=== PATIENT | male | born 1980 | race Hispanic/Latino ===

== ENCOUNTER 2021-12-20 08:56 | Emergency (ER) | payer SELFPAY ==
[2021-12-20] MEDS ORDERED: diphenhydrAMINE 50 MG/ML VIAL ONE (10:07)
[2021-12-20] MEDS ORDERED: Haloperidol Lactate 5 MG/ML VIAL ONE (10:07)
[2021-12-20] MEDS ORDERED: Ketorolac Tromethamine 30 MG/ML VIAL ONE (10:08)
[2021-12-20 10:26] LABS: #Monocytes 0.6 10x3/uL (0.0-1.1); #Neutrophils 16.4 10x3/uL (1.5-8.4); %Basophils 0.2 % (0.0-2.0); %Lymphocytes 7.8 % (18.0-47.0); %Monocytes 3.4 % (0.0-10.0); %Neutrophils 88.2 % (40.0-75.0); Hemoglobin 14.3 g/dL (13.5-17.5); Mean Corpuscular Hemoglobin 32.4 pg (27.0-33.0); Mean Corpuscular Volume 92.3 fl (81.2-95.1); Mean Platelet Volume 12.2 fl (7.4-10.4); Platelet Count 201 10x3/uL (150-450); RBC Distribution Width 13.5 % (11.5-14.5); Red Blood Cell (RBC) Count 4.42 10x6/uL (4.32-5.72); White Blood Cell (WBC) Count 18.6 10x3/uL (3.5-10.5)
[2021-12-20 10:49] LABS: ALT (SGPT) 38 U/L (8-55); AST (SGOT) 27 U/L (5-34); Albumin 4.6 g/dL (3.5-5.0); Alkaline Phosphatase 88 U/L (40-110); Anion Gap 14 mmol/L (10-20); BUN (Urea Nitrogen) 18 mg/dL (8.9-20.6); Bilirubin, Total 0.8 mg/dL (0.2-1.2); Calc. Creatinine Clearance 0 mL/min (70-130); Calcium 9.4 mg/dL (7.8-10.44); Carbon Dioxide 25 mmol/L (22-29); Chloride 104 mmol/L (98-107); Globulin 3.2 g/dL (2.4-3.5); Glucose 128 mg/dL (70-105); Lipase 10 U/L (8-78); Potassium 3.8 mmol/L (3.5-5.1); Protein, Total 7.8 g/dL (6.0-8.3); Sodium 139 mmol/L (136-145)
== END 2021-12-20 11:20 | disposition home or self-care (01) ==
LOC: CSHERS 08:56
DX: K57.92 Diverticulitis of intestine, part unspecified, without perforation or abscess without bleeding (principal); Z79.899 Other long term (current) drug therapy; F17.200 Nicotine dependence, unspecified, uncomplicated
CPT/HCPCS: 74019; 80053; 83690; 85025; 96374; 96375; J1200; J1630; J1885

== ENCOUNTER 2022-01-25 22:28 | Emergency (ER) | payer SELFPAY ==
[2022-01-25] MEDS ORDERED: Ondansetron PF 4 MG/2 ML Vial ONE (23:04)
[2022-01-25] MEDS ORDERED: Morphine 4 MG/ML VIAL ONE (23:04)
[2022-01-25 23:14] LABS: Hemoglobin 14.9 g/dL (13.5-17.5); MDiff Complete? YES; Mean Corpuscular HGB CONC 35.1 g/dL (32.0-36.0); Mean Platelet Volume 12.2 fl (7.4-10.4); Platelet Count 213 10x3/uL (150-450); RBC Distribution Width 13.5 % (11.5-14.5); Red Blood Cell (RBC) Count 4.66 10x6/uL (4.32-5.72); White Blood Cell (WBC) Count 20.2 10x3/uL (3.5-10.5)
[2022-01-25 23:23] LABS: ALT (SGPT) 24 U/L (8-55); AST (SGOT) 18 U/L (5-34); Albumin 4.5 g/dL (3.5-5.0); Alkaline Phosphatase 100 U/L (40-110); Anion Gap 13 mmol/L (10-20); BUN (Urea Nitrogen) 18 mg/dL (8.9-20.6); Bilirubin, Total 0.3 mg/dL (0.2-1.2); CK (CPK) 195 U/L (30-200); Calc. Creatinine Clearance 0 mL/min (70-130); Calcium 9.3 mg/dL (7.8-10.44); Carbon Dioxide 22 mmol/L (22-29); Chloride 109 mmol/L (98-107); Globulin 2.6 g/dL (2.4-3.5); Glucose 149 mg/dL (70-105); Lipase 28 U/L (8-78); Protein, Total 7.1 g/dL (6.0-8.3); Sodium 140 mmol/L (136-145)
[2022-01-25] MEDS ORDERED: Pantoprazole 40 MG VIAL ONE (23:25)
[2022-01-25 23:30] LABS: Lymphocytes 12 % (21-51); Monocytes 3 % (0-10); Neutrophil 85 % (42-75)
[2022-01-25 23:31] LABS: Platelet Morphology Comment Appears Adequate; RBC Morphology Normal
== END 2022-01-25 23:46 | disposition home or self-care (01) ==
LOC: CSHERS 22:28
DX: K29.00 Acute gastritis without bleeding (principal); D72.829 Elevated white blood cell count, unspecified; R00.1 Bradycardia, unspecified; F17.200 Nicotine dependence, unspecified, uncomplicated
CPT/HCPCS: 80053; 82550; 83690; 83880; 84484; 85025; 93005; 96374; 96375; C9113; J2270; J2405

== ENCOUNTER 2022-01-26 04:03 | Emergency (ER) | payer SELFPAY ==
[2022-01-26] MEDS ORDERED: Lidocaine Viscous Sol 2% 15 ml UD Cup ONE (04:48)
[2022-01-26] MEDS ORDERED: Morphine 4 MG/ML VIAL ONE (04:48)
[2022-01-26] MEDS ORDERED: Mag-Al Plus 1200 MG/1200 MG/120 MG/30 ML UDCUP ONE (04:48)
[2022-01-26] MEDS ORDERED: Ondansetron PF 4 MG/2 ML Vial ONE (04:49)
[2022-01-26] MEDS ORDERED: Iopamidol 300 61% 100 ML VIAL FS ONE (09:07)
== END 2022-01-26 06:55 | disposition home or self-care (01) ==
LOC: CSHERS 04:03
DX: R10.9 Unspecified abdominal pain (principal); F17.200 Nicotine dependence, unspecified, uncomplicated
CPT/HCPCS: 74177; 84484; 93005; 96374; 96375; J2270; J2405; Q9967

== ENCOUNTER 2022-05-11 17:54 | Emergency (ER) | payer SELFPAY ==
[2022-05-11] MEDS ORDERED: Ondansetron ODT 4 MG TAB ONE (19:03)
[2022-05-11] MEDS ORDERED: Dicyclomine 20 MG/2 ML VIAL ONE (19:03)
[2022-05-11 20:10] LABS: #Monocytes 0.7 10x3/uL (0.0-1.1); #Neutrophils 11.7 10x3/uL (1.5-8.4); %Basophils 0.3 % (0.0-2.0); %Eosinophils 0.1 % (0.0-6.0); %Lymphocytes 9.1 % (18.0-47.0); %Monocytes 4.9 % (0.0-10.0); %Neutrophils 85.1 % (40.0-75.0); Hemoglobin 15.4 g/dL (13.5-17.5); Mean Corpuscular HGB CONC 35.3 g/dL (32.0-36.0); Mean Corpuscular Hemoglobin 32.2 pg (27.0-33.0); Mean Platelet Volume 12.1 fl (7.4-10.4); Platelet Count 213 10x3/uL (150-450); Red Blood Cell (RBC) Count 4.79 10x6/uL (4.32-5.72); White Blood Cell (WBC) Count 13.8 10x3/uL (3.5-10.5)
[2022-05-11] MEDS ORDERED: Morphine 4 MG/ML VIAL ONE (20:10)
[2022-05-11] MEDS ORDERED: Promethazine HCl 25 MG/ML VIAL ONE (20:10)
[2022-05-11] MEDS ORDERED: Pantoprazole 40 MG VIAL ONE (20:11)
[2022-05-11 20:29] LABS: ALT (SGPT) 36 U/L (8-55); AST (SGOT) 28 U/L (5-34); Albumin 4.7 g/dL (3.5-5.0); Alkaline Phosphatase 94 U/L (40-110); Anion Gap 15 mmol/L (10-20); BUN (Urea Nitrogen) 11 mg/dL (8.9-20.6); Bilirubin, Total 0.6 mg/dL (0.2-1.2); Calc. Creatinine Clearance 0 mL/min (70-130); Calcium 9.9 mg/dL (7.8-10.44); Carbon Dioxide 23 mmol/L (22-29); Chloride 106 mmol/L (98-107); Estimated GFR 114; Globulin 3.2 g/dL (2.4-3.5); Glucose 149 mg/dL (70-105); Lipase 21 U/L (8-78); Potassium 4.3 mmol/L (3.5-5.1); Protein, Total 7.9 g/dL (6.0-8.3); Sodium 140 mmol/L (136-145)
== END 2022-05-11 21:20 | disposition home or self-care (01) ==
LOC: CSHERS 17:54
DX: R10.13 Epigastric pain (principal); F17.200 Nicotine dependence, unspecified, uncomplicated
CPT/HCPCS: 71045; 80053; 83690; 84484; 85025; 93005; 96372; 96374; 96375; C9113; J2270; J2550; Q0162

== ENCOUNTER 2022-05-14 09:00 | Emergency (ER) | payer SELFPAY ==
[2022-05-14 09:41] LABS: #Neutrophils 6.6 10x3/uL (1.5-8.4); %Basophils 0.3 % (0.0-2.0); %Eosinophils 0.1 % (0.0-6.0); %Lymphocytes 25.5 % (18.0-47.0); %Monocytes 9.7 % (0.0-10.0); %Neutrophils 63.9 % (40.0-75.0); Hemoglobin 15.1 g/dL (13.5-17.5); Mean Corpuscular HGB CONC 35.8 g/dL (32.0-36.0); Mean Corpuscular Hemoglobin 32.2 pg (27.0-33.0); Mean Platelet Volume 12.1 fl (7.4-10.4); Platelet Count 202 10x3/uL (150-450); RBC Distribution Width 12.5 % (11.5-14.5); Red Blood Cell (RBC) Count 4.69 10x6/uL (4.32-5.72); White Blood Cell (WBC) Count 10.4 10x3/uL (3.5-10.5)
[2022-05-14] MEDS ORDERED: Pantoprazole 40 MG VIAL ONE (09:57)
[2022-05-14] MEDS ORDERED: Ondansetron PF 4 MG/2 ML Vial ONE (09:58)
[2022-05-14] MEDS ORDERED: Morphine 4 MG/ML VIAL ONE ×2 (09:59→12:04)
[2022-05-14 10:05] LABS: ALT (SGPT) 30 U/L (8-55); AST (SGOT) 22 U/L (5-34); Albumin 4.4 g/dL (3.5-5.0); Alkaline Phosphatase 81 U/L (40-110); Anion Gap 13 mmol/L (10-20); BUN (Urea Nitrogen) 11 mg/dL (8.9-20.6); Bilirubin, Total 0.8 mg/dL (0.2-1.2); Calc. Creatinine Clearance 0 mL/min (70-130); Calcium 9.4 mg/dL (7.8-10.44); Carbon Dioxide 26 mmol/L (22-29); Chloride 99 mmol/L (98-107); Estimated GFR 113; Glucose 111 mg/dL (70-105); Lipase 20 U/L (8-78); Potassium 3.8 mmol/L (3.5-5.1); Protein, Total 7.4 g/dL (6.0-8.3); Sodium 134 mmol/L (136-145)
[2022-05-14] MEDS ORDERED: Mag-Al Plus 1200 MG/1200 MG/120 MG/30 ML UDCUP ONE (11:15)
[2022-05-14] MEDS ORDERED: Lidocaine Viscous Sol 2% 15 ml UD Cup ONE (11:16)
[2022-05-14 11:37] LABS: Bilirubin Neg (Negative); Blood, Urine 25 (Negative); Clarity Clear (Clear); Glucose, Urine (Dipstick) Normal (Negative); Ketone, Urine 15 mg/dL (Negative); Leukocyte Negative (Negative); Nitrite Negative (Negative); Protein, Urine (Dipstick) Negative (Neg-Trace); Specific Gravity, Urine 1.005 (1.002-1.036); Urobilinogen Normal mg/dL (Less than 2)
[2022-05-14 11:48] LABS: Bacteria/HPF None Seen HPF (None Seen); Squamous Epithelial 0-3 HPF (0-3); WBC/HPF 0-3 HPF (0-3)
[2022-05-14] MEDS ORDERED: Iopamidol 300 61% 100 ML VIAL FS ONE (15:38)
== END 2022-05-14 12:18 | disposition home or self-care (01) ==
LOC: CSHERS 09:00
DX: K29.00 Acute gastritis without bleeding (principal); F17.200 Nicotine dependence, unspecified, uncomplicated
CPT/HCPCS: 74177; 80053; 81003; 81015; 83690; 85025; 96361; 96374; 96375; 96376; C9113; J2270; J2405; Q9967

== ENCOUNTER 2022-06-24 16:53 | Emergency (ER) | payer SELFPAY ==
[2022-06-24 17:31] LABS: #Monocytes 0.5 10x3/uL (0.0-1.1); #Neutrophils 12.3 10x3/uL (1.5-8.4); %Basophils 0.3 % (0.0-2.0); %Eosinophils 0.1 % (0.0-6.0); %Lymphocytes 13.2 % (18.0-47.0); %Monocytes 3.4 % (0.0-10.0); %Neutrophils 82.6 % (40.0-75.0); Hemoglobin 15.7 g/dL (13.5-17.5); Mean Corpuscular HGB CONC 34.7 g/dL (32.0-36.0); Mean Corpuscular Hemoglobin 32.1 pg (27.0-33.0); Mean Corpuscular Volume 92.4 fl (81.2-95.1); Mean Platelet Volume 12.5 fl (7.4-10.4); Platelet Count 224 10x3/uL (150-450); RBC Distribution Width 13.1 % (11.5-14.5); Red Blood Cell (RBC) Count 4.89 10x6/uL (4.32-5.72); White Blood Cell (WBC) Count 14.9 10x3/uL (3.5-10.5)
[2022-06-24] MEDS ORDERED: Ondansetron PF 4 MG/2 ML Vial ONE (17:53)
[2022-06-24] MEDS ORDERED: Ketorolac Tromethamine 30 MG/ML VIAL ONE (17:53)
[2022-06-24 17:54] LABS: ALT (SGPT) 31 U/L (8-55); AST (SGOT) 26 U/L (5-34); Alkaline Phosphatase 97 U/L (40-110); Anion Gap 12 mmol/L (10-20); BUN (Urea Nitrogen) 13 mg/dL (8.9-20.6); Bilirubin, Total 0.4 mg/dL (0.2-1.2); Calc. Creatinine Clearance 0 mL/min (70-130); Carbon Dioxide 27 mmol/L (22-29); Chloride 108 mmol/L (98-107); Estimated GFR 110; Globulin 3.3 g/dL (2.4-3.5); Glucose 117 mg/dL (70-105); Potassium 4.1 mmol/L (3.5-5.1); Protein, Total 8.3 g/dL (6.0-8.3); Sodium 143 mmol/L (136-145)
[2022-06-24] MEDS ORDERED: Lidocaine Viscous Sol 2% 15 ml UD Cup ONE (19:12)
[2022-06-24] MEDS ORDERED: Mag-Al Plus 1200 MG/1200 MG/120 MG/30 ML UDCUP ONE (19:12)
[2022-06-24] MEDS ORDERED: Morphine 4 MG/ML VIAL ONE (19:12)
[2022-06-24 19:27] LABS: CK (CPK) 335 U/L (30-200); Lipase 18 U/L (8-78)
[2022-06-24 19:53] LABS: Bilirubin Neg (Negative); Blood, Urine 25 (Negative); Clarity Cloudy (Clear); Glucose, Urine (Dipstick) Normal (Negative); Ketone, Urine 5 mg/dL (Negative); Leukocyte Negative (Negative); Nitrite Negative (Negative); Protein, Urine (Dipstick) 30 mg/dl (Neg-Trace); Specific Gravity, Urine 1.025 (1.002-1.036)
[2022-06-24 20:04] LABS: Bacteria/HPF None Seen HPF (None Seen); RBC/HPF 0-3 HPF (0-3); Squamous Epithelial 0-3 HPF (0-3); WBC/HPF 0-3 HPF (0-3)
[2022-06-25] MEDS ORDERED: Morphine 4 MG/ML VIAL ONE (04:13)
[2022-06-25] MEDS ORDERED: Ondansetron PF 4 MG/2 ML Vial ONE (04:14)
== END 2022-06-24 19:58 | disposition home or self-care (01) ==
LOC: CSHERS 16:53
DX: R10.12 Left upper quadrant pain (principal); R11.2 Nausea with vomiting, unspecified; R19.7 Diarrhea, unspecified; F17.200 Nicotine dependence, unspecified, uncomplicated
CPT/HCPCS: 74176; 80053; 81003; 81015; 82550; 83605; 83690; 85025; 96361; 96374; 96375; J1885; J2270; J2405

== ENCOUNTER 2022-06-25 02:11 | Emergency (ER) | payer SELFPAY ==
[2022-06-25 03:34] LABS: #Eosinphils 0.3 10x3/uL (0.0-0.5); #Monocytes 0.6 10x3/uL (0.0-1.1); %Basophils 0.1 % (0.0-2.0); %Eosinophils 1.8 % (0.0-6.0); %Lymphocytes 9.9 % (18.0-47.0); %Monocytes 3.4 % (0.0-10.0); %Neutrophils 84.5 % (40.0-75.0); Hemoglobin 14.7 g/dL (13.5-17.5); Mean Corpuscular HGB CONC 35.9 g/dL (32.0-36.0); Mean Corpuscular Hemoglobin 32.4 pg (27.0-33.0); Mean Corpuscular Volume 90.3 fl (81.2-95.1); Mean Platelet Volume 12.3 fl (7.4-10.4); Platelet Count 214 10x3/uL (150-450); RBC Distribution Width 13.2 % (11.5-14.5); Red Blood Cell (RBC) Count 4.54 10x6/uL (4.32-5.72); White Blood Cell (WBC) Count 16.5 10x3/uL (3.5-10.5)
[2022-06-25 03:51] LABS: ALT (SGPT) 29 U/L (8-55); AST (SGOT) 23 U/L (5-34); Albumin 4.9 g/dL (3.5-5.0); Alkaline Phosphatase 88 U/L (40-110); Anion Gap 13 mmol/L (10-20); BUN (Urea Nitrogen) 14 mg/dL (8.9-20.6); Bilirubin, Total 0.7 mg/dL (0.2-1.2); Calc. Creatinine Clearance 0 mL/min (70-130); Carbon Dioxide 28 mmol/L (22-29); Chloride 103 mmol/L (98-107); Estimated GFR 113; Globulin 3.2 g/dL (2.4-3.5); Glucose 143 mg/dL (70-105); Lipase 13 U/L (8-78); Potassium 4.2 mmol/L (3.5-5.1); Protein, Total 8.1 g/dL (6.0-8.3); Sodium 140 mmol/L (136-145)
== END 2022-06-25 09:13 | disposition home or self-care (01) ==
LOC: CSHERS 02:11
DX: R11.2 Nausea with vomiting, unspecified (principal); R10.11 Right upper quadrant pain; D72.829 Elevated white blood cell count, unspecified; F17.210 Nicotine dependence, cigarettes, uncomplicated
CPT/HCPCS: 36415; 76705; 80053; 83690; 85025; 96361; 96374; 96375; J2270; J2405

== ENCOUNTER 2022-06-26 12:35 | Inpatient (IN) | payer SELFPAY ==
[2022-06-26 13:39] LABS: #Monocytes 0.5 10x3/uL (0.0-1.1); #Neutrophils 7.8 10x3/uL (1.5-8.4); %Basophils 0.2 % (0.0-2.0); %Lymphocytes 17.6 % (18.0-47.0); %Monocytes 5.1 % (0.0-10.0); %Neutrophils 76.8 % (40.0-75.0); Hemoglobin 14.8 g/dL (13.5-17.5); Mean Corpuscular HGB CONC 35.2 g/dL (32.0-36.0); Mean Corpuscular Hemoglobin 32.5 pg (27.0-33.0); Mean Corpuscular Volume 92.5 fl (81.2-95.1); Mean Platelet Volume 11.9 fl (7.4-10.4); Platelet Count 199 10x3/uL (150-450); RBC Distribution Width 13.1 % (11.5-14.5); Red Blood Cell (RBC) Count 4.55 10x6/uL (4.32-5.72); White Blood Cell (WBC) Count 10.1 10x3/uL (3.5-10.5)
[2022-06-26 13:57] LABS: ALT (SGPT) 29 U/L (8-55); AST (SGOT) 22 U/L (5-34); Albumin 4.7 g/dL (3.5-5.0); Alkaline Phosphatase 90 U/L (40-110); Anion Gap 11 mmol/L (10-20); BUN (Urea Nitrogen) 15 mg/dL (8.9-20.6); Bilirubin, Total 0.8 mg/dL (0.2-1.2); Calc. Creatinine Clearance 0 mL/min (70-130); Calcium 9.1 mg/dL (7.8-10.44); Carbon Dioxide 27 mmol/L (22-29); Chloride 101 mmol/L (98-107); Estimated GFR 113; Globulin 2.9 g/dL (2.4-3.5); Glucose 108 mg/dL (70-105); Lipase 17 U/L (8-78); Potassium 3.8 mmol/L (3.5-5.1); Protein, Total 7.6 g/dL (6.0-8.3); Sodium 135 mmol/L (136-145)
[2022-06-26] MEDS ORDERED: Ketorolac Tromethamine 30 MG/ML VIAL ONE (13:57)
[2022-06-26] MEDS ORDERED: Ondansetron PF 4 MG/2 ML Vial ONE (13:57)
[2022-06-26 14:54] LABS: Bilirubin Neg (Negative); Blood, Urine 25 (Negative); Clarity Clear (Clear); Glucose, Urine (Dipstick) Normal (Negative); Ketone, Urine 5 mg/dL (Negative); Leukocyte Negative (Negative); Nitrite Negative (Negative); Protein, Urine (Dipstick) 15 mg/dl (Neg-Trace); Urobilinogen Normal mg/dL (Less than 2); pH, Urine 6.5 (5.0-9.0)
[2022-06-26 15:17] LABS: Bacteria/HPF None Seen HPF (None Seen); RBC/HPF 0-3 HPF (0-3); Squamous Epithelial 0-3 HPF (0-3); WBC/HPF None Seen HPF (0-3)
[2022-06-26] MEDS ORDERED: Acetaminophen 325 MG TAB PO PRN (15:22)
[2022-06-26] MEDS ORDERED: Ondansetron ODT 4 MG TAB PO PRN (15:22)
[2022-06-26] MEDS ORDERED: Iopamidol 300 61% 100 ML VIAL FS ONE (15:31)
[2022-06-26 16:35] VITALS: BMI 32.8
[2022-06-26] MEDS: Morphine 2 MG/ML VIAL SLOW IVP PRN ×2 (17:26→20:56)
[2022-06-26] MEDS: Sodium Chloride 0.9% 1,000 ML IV SCH (17:26)
[2022-06-26] MEDS: Nicotine 7 MG PATCH TD SCH (17:26)
[2022-06-26 18:42] LABS: SARS-CoV-2 NAA Rapid Test Not Detected (NotDetected)
[2022-06-26] MEDS: Ondansetron PF 4 MG/2 ML Vial IVP PRN (20:57)
[2022-06-27] MEDS: Morphine 2 MG/ML VIAL SLOW IVP PRN ×2 (02:15→06:06)
[2022-06-27] MEDS: Sodium Chloride 0.9% 1,000 ML IV SCH ×2 (05:57→20:00)
[2022-06-27] MEDS: Ondansetron PF 4 MG/2 ML Vial IVP PRN (06:06)
[2022-06-27 06:36] LABS: ALT (SGPT) 20 U/L (8-55); AST (SGOT) 13 U/L (5-34); Albumin 3.6 g/dL (3.5-5.0); Alkaline Phosphatase 70 U/L (40-110); Anion Gap 9 mmol/L (10-20); BUN (Urea Nitrogen) 11 mg/dL (8.9-20.6); Bilirubin, Total 0.9 mg/dL (0.2-1.2); Calc. Creatinine Clearance 168 mL/min (70-130); Calcium 8.4 mg/dL (7.8-10.44); Carbon Dioxide 27 mmol/L (22-29); Chloride 105 mmol/L (98-107); Estimated GFR 115; Globulin 2.1 g/dL (2.4-3.5); Glucose 94 mg/dL (70-105); Potassium 3.4 mmol/L (3.5-5.1); Protein, Total 5.7 g/dL (6.0-8.3); Sodium 138 mmol/L (136-145)
[2022-06-27] MEDS ORDERED: Ketorolac Tromethamine 30 MG/ML VIAL IVP PRN (11:10)
[2022-06-27] MEDS ORDERED: Pantoprazole 40 MG VIAL IVP SCH (12:00)
[2022-06-27] MEDS: Nicotine 7 MG PATCH TD SCH (17:28)
[2022-06-28 05:19] LABS: ALT (SGPT) 18 U/L (8-55); AST (SGOT) 12 U/L (5-34); Albumin 3.3 g/dL (3.5-5.0); Alkaline Phosphatase 65 U/L (40-110); Anion Gap 8 mmol/L (10-20); BUN (Urea Nitrogen) 8 mg/dL (8.9-20.6); Bilirubin, Total 0.8 mg/dL (0.2-1.2); Calc. Creatinine Clearance 152 mL/min (70-130); Calcium 8.2 mg/dL (7.8-10.44); Carbon Dioxide 28 mmol/L (22-29); Chloride 107 mmol/L (98-107); Estimated GFR 112; Glucose 90 mg/dL (70-105); Potassium 3.6 mmol/L (3.5-5.1); Protein, Total 5.3 g/dL (6.0-8.3); Sodium 139 mmol/L (136-145)
[2022-06-28] MEDS ORDERED: Ketamine 50 MG/ML (10ML VIAL) ONE (07:48)
[2022-06-28] MEDS ORDERED: PROPOFOL 40 ML ONE (07:48)
[2022-06-28] MEDS ORDERED: Ondansetron PF 4 MG/2 ML Vial ONE (08:36)
[2022-06-28] MEDS: Sodium Chloride 0.9% 1,000 ML IV SCH (08:42)
[2022-06-28] MEDS: Morphine 2 MG/ML VIAL SLOW IVP PRN ×3 (09:01→21:47)
[2022-06-28] MEDS ORDERED: hydrALAZINE 20 MG/ML VIAL SLOW IVP PRN (09:45)
[2022-06-28] MEDS ORDERED: Metoclopramide HCl 10 MG/2 ML VIAL IVP PRN (10:50)
[2022-06-28] MEDS ORDERED: Dicyclomine 10 MG CAP PO SCH (12:00)
[2022-06-28] MEDS: Nicotine 7 MG PATCH TD SCH (16:43)
[2022-06-28] MEDS: Dicyclomine 10 MG CAP PO SCH ×2 (16:43→21:47)
[2022-06-28] MEDS: Ondansetron PF 4 MG/2 ML Vial IVP PRN (16:56)
[2022-06-29 06:58] LABS: ALT (SGPT) 20 U/L (8-55); AST (SGOT) 17 U/L (5-34); Albumin 3.7 g/dL (3.5-5.0); Alkaline Phosphatase 75 U/L (40-110); Anion Gap 14 mmol/L (10-20); BUN (Urea Nitrogen) 8 mg/dL (8.9-20.6); Bilirubin, Total 0.7 mg/dL (0.2-1.2); Calc. Creatinine Clearance 158 mL/min (70-130); Calcium 8.7 mg/dL (7.8-10.44); Carbon Dioxide 26 mmol/L (22-29); Chloride 102 mmol/L (98-107); Estimated GFR 113; Globulin 2.5 g/dL (2.4-3.5); Glucose 84 mg/dL (70-105); Potassium 3.3 mmol/L (3.5-5.1); Protein, Total 6.2 g/dL (6.0-8.3); Sodium 139 mmol/L (136-145)
[2022-06-29] MEDS: Dicyclomine 10 MG CAP PO SCH (10:50)
[2022-06-29 15:49] VITALS: BP 134/80; TEMP 97.8
== END 2022-06-29 15:50 | disposition home or self-care (01) | DRG 392 ==
LOC: CSHERS 12:35 → CSHTELE 15:47 → OBSVTOIN 06-27 11:16
PROVIDERS: ADMIT Hospitalist; ATTEND Family Medicine
PROC: 0DB68ZX Excision of Stomach, Via Natural or Artificial Opening Endoscopic, Diagnostic (ICD-10-PCS; principal; 2022-06-28)
DX: K58.9 Irritable bowel syndrome, unspecified (principal); K29.70 Gastritis, unspecified, without bleeding; F17.210 Nicotine dependence, cigarettes, uncomplicated; K42.9 Umbilical hernia without obstruction or gangrene; K40.90 Unilateral inguinal hernia, without obstruction or gangrene, not specified as recurrent; Z20.822 Contact with and (suspected) exposure to COVID-19; Z79.899 Other long term (current) drug therapy
CPT/HCPCS: 36415; 74177; 78227; 80053; 81003; 81015; 83605; 83690; 84443; 85025; 85652; 86140; 88305; 94760; 96361; 96374; 96375; 96376; A9537; C9113; G0378; J1885; J2270; J2405; J2704; J2765; J7050; Q0162; Q9967; U0002

== ENCOUNTER 2024-03-05 16:49 | Inpatient (IN) | payer SELFPAY ==
[~2024-03-05 16:49] MED LIST: Iopamidol 300 61% 100 ML VIAL FS ONE
[2024-03-05] MEDS ORDERED: Ondansetron PF 4 MG/2 ML Vial ONE (17:17)
[2024-03-05] MEDS ORDERED: Pantoprazole 40 MG VIAL ONE (17:35)
[2024-03-05] MEDS ORDERED: Ketorolac Tromethamine 30 MG (1 mL) VIAL ONE (17:35)
[2024-03-05 17:53] LABS: #Basophils 0.04 10x3/uL (0.0-0.2); #Eosinphils 0.01 10x3/uL (0.0-0.5); #Monocytes 0.45 10x3/uL (0.0-1.1); #Neutrophils 9.93 10x3/uL (1.5-8.4); %Basophils 0.3 % (0.0-2.0); %Eosinophils 0.1 % (0.0-6.0); %Monocytes 3.6 % (0.0-10.0); %Neutrophils 79.3 % (40.0-75.0); Hematocrit 42.5 % (38.8-50.0); Hemoglobin 15.6 g/dL (13.5-17.5); Mean Corpuscular HGB CONC 36.7 g/dL (32.0-36.0); Mean Corpuscular Hemoglobin 33.2 pg (27.0-33.0); Mean Corpuscular Volume 90.4 fl (81.2-95.1); Mean Platelet Volume 12.8 fl (7.4-10.4); Platelet Count 219 10x3/uL (150-450); RBC Distribution Width 13.1 % (11.5-14.5); White Blood Cell (WBC) Count 12.5 10x3/uL (3.5-10.5)
[2024-03-05 18:10] LABS: ALT (SGPT) 32 U/L (8-55); AST (SGOT) 23 U/L (5-34); Albumin 4.3 g/dL (3.5-5.0); Alkaline Phosphatase 112 U/L (40-110); Anion Gap 16 mmol/L (10-20); BUN (Urea Nitrogen) 14 mg/dL (8.9-20.6); Bilirubin, Total 0.5 mg/dL (0.2-1.2); Calc. Creatinine Clearance 0 mL/min (70-130); Carbon Dioxide 23 mmol/L (22-29); Chloride 107 mmol/L (98-107); Estimated GFR 112; Globulin 3.5 g/dL (2.4-3.5); Glucose 174 mg/dL (70-105); Lipase 20 U/L (8-78); Protein, Total 7.8 g/dL (6.0-8.3); Sodium 142 mmol/L (136-145)
[2024-03-05] MEDS ORDERED: Morphine 4 MG/ML VIAL ONE (18:41)
[2024-03-05] MEDS ORDERED: Dicyclomine 20 MG/2 ML VIAL ONE (20:28)
[2024-03-05 20:31] LABS: Troponin I Less than 0.010 ng/mL (< 0.028)
[2024-03-05 22:51] LABS: Bilirubin Neg (Negative); Blood, Urine 150 (Negative); Clarity Clear (Clear); Glucose, Urine (Dipstick) 100 mg/dL (Negative); Ketone, Urine 5 mg/dL (Negative); Leukocyte Negative (Negative); Nitrite Negative (Negative); Protein, Urine (Dipstick) 30 mg/dl (Neg-Trace); Urobilinogen Normal mg/dL (Less than 2)
[2024-03-05] MEDS: Promethazine HCl 25 MG in Sodium Chloride 0.9% 50 ML IVPB SCH (22:51)
[2024-03-05] MEDS: Lidocaine 2% Viscous 10 mL, Alum & Magn 30 mL SSW SCH (22:51)
[2024-03-05] MEDS ORDERED: Acetaminophen 325 MG TAB PO PRN (22:52)
[2024-03-05] MEDS ORDERED: Calcium Carbonate 500 MG ChewTAB PO PRN (22:52)
[2024-03-05] MEDS ORDERED: Ondansetron PF 4 MG/2 ML Vial IVP PRN (22:52)
[2024-03-05 23:00] LABS: Amphetamine Not Detected (NotDetected); Barbiturates Screen Not Detected (NotDetected); Benzodiazepine Screen Not Detected (NotDetected); Cocaine Metabolite Screen Not Detected (NotDetected); Methadone Not Detected (NotDetected); Methamphetamine Not Detected (NotDetected); Opiate Screen Detected (NotDetected); Oxycodone Screen Not Detected (NotDetected); Phencyclidine (PCP) Not Detected (NotDetected); THC/Cannabinoid Screen Not Detected (NotDetected); Tricyclic Screen Not Detected (NotDetected)
[2024-03-05 23:03] LABS: CAUTI Indications for Culture Pelvic or flank pain; WBC/HPF 0-3 HPF (0-3)
[2024-03-05 23:04] LABS: Bacteria/HPF 1+ HPF (None Seen); Urine Culture Reflex No No
[2024-03-05 23:30] VITALS: BMI 33.6
[2024-03-06] MEDS: Lactated Ringer's 1,000 ML IV SCH (00:21)
[2024-03-06] MEDS: Sucralfate 1 GM TAB PO SCH (00:21)
[2024-03-06 01:17] LABS: Bilirubin Neg (Negative); Blood, Urine 50 (Negative); Clarity Cloudy (Clear); Glucose, Urine (Dipstick) 250 mg/dL (Negative); Ketone, Urine 5 mg/dL (Negative); Leukocyte Negative (Negative); Nitrite Negative (Negative); Protein, Urine (Dipstick) 30 mg/dl (Neg-Trace); Urobilinogen Normal mg/dL (Less than 2)
[2024-03-06 01:25] LABS: Bacteria/HPF 3+ HPF (None Seen); RBC/HPF 0-3 HPF (0-3); Squamous Epithelial None Seen HPF (0-3); WBC/HPF 0-3 HPF (0-3)
[2024-03-06] MEDS: Morphine 2 MG/ML VIAL SLOW IVP PRN (01:27)
[2024-03-06 05:04] LABS: #Basophils 0.02 10x3/uL (0.0-0.2); #Monocytes 0.85 10x3/uL (0.0-1.1); #Neutrophils 14.02 10x3/uL (1.5-8.4); %Basophils 0.1 % (0.0-2.0); %Lymphocytes 7.7 % (18.0-47.0); %Monocytes 5.2 % (0.0-10.0); %Neutrophils 86.6 % (40.0-75.0); Hematocrit 38.5 % (38.8-50.0); Hemoglobin 13.7 g/dL (13.5-17.5); Mean Corpuscular HGB CONC 35.6 g/dL (32.0-36.0); Mean Corpuscular Hemoglobin 32.4 pg (27.0-33.0); Mean Platelet Volume 12.6 fl (7.4-10.4); Platelet Count 211 10x3/uL (150-450); RBC Distribution Width 13.4 % (11.5-14.5); Red Blood Cell (RBC) Count 4.23 10x6/uL (4.32-5.72); White Blood Cell (WBC) Count 16.2 10x3/uL (3.5-10.5)
[2024-03-06 05:11] LABS: ALT (SGPT) 29 U/L (8-55); AST (SGOT) 20 U/L (5-34); Albumin 3.8 g/dL (3.5-5.0); Alkaline Phosphatase 94 U/L (40-110); Anion Gap 11 mmol/L (10-20); BUN (Urea Nitrogen) 15 mg/dL (8.9-20.6); Bilirubin, Total 0.8 mg/dL (0.2-1.2); Calc. Creatinine Clearance 179 mL/min (70-130); Calcium 9.2 mg/dL (7.8-10.44); Carbon Dioxide 27 mmol/L (22-29); Chloride 103 mmol/L (98-107); Estimated GFR 113; Globulin 3.2 g/dL (2.4-3.5); Glucose 161 mg/dL (70-105); Potassium 4.2 mmol/L (3.5-5.1); Sodium 137 mmol/L (136-145)
[2024-03-06 05:16] LABS: Troponin I Less than 0.010 ng/mL (< 0.028)
[2024-03-06] MEDS: Pantoprazole 40 MG VIAL IVP SCH (08:10)
[2024-03-06] MEDS ORDERED: Iopamidol 0 ML ONE (08:36)
[2024-03-06] MEDS ORDERED: SUGAMMADEX SODIUM 200 MG/2 ML VIAL ONE (10:46)
[2024-03-06] MEDS ORDERED: Etomidate 40 MG (20 mL) VIAL ONE (10:47)
[2024-03-06] MEDS ORDERED: Famotidine/PF 20 mg/2ml Vial ONE (10:47)
[2024-03-06] MEDS ORDERED: Lidocaine 2% PF 5 ML VIAL ONE (10:51)
[2024-03-06] MEDS ORDERED: PHENYLEPHRINE-NS 100 MCG/ML 10 ML SYRINGE ONE (10:51)
[2024-03-06] MEDS ORDERED: PROPOFOL 20 ML ONE (10:51)
[2024-03-06] MEDS ORDERED: Ondansetron PF 4 MG/2 ML Vial ONE (10:51)
[2024-03-06] MEDS ORDERED: Rocuronium Bromide 10 MG/ML (10ML VIAL) ONE (10:51)
[2024-03-06 12:04] LABS: Hemoglobin A1c 6.7 % (4.0-6.0)
[2024-03-06] MEDS: Clarithromycin 250 MG TAB PO SCH (20:05)
[2024-03-06] MEDS: Pantoprazole DR 40 MG TAB PO SCH (20:06)
[2024-03-06] MEDS: Enoxaparin 40 MG (0.4 mL) SYRINGE SC SCH (20:08)
[2024-03-06] MEDS: AMOXicillin 250 MG CAP PO SCH (20:08)
[2024-03-06] MEDS ORDERED: AMOXicillin 500 MG CAP PO SCH (21:00)
[2024-03-06] MEDS ORDERED: Clarithromycin 500 MG TAB PO SCH (21:00)
[2024-03-07 05:03] LABS: #Basophils 0.04 10x3/uL (0.0-0.2); #Eosinphils 0.05 10x3/uL (0.0-0.5); #Monocytes 0.81 10x3/uL (0.0-1.1); #Neutrophils 5.12 10x3/uL (1.5-8.4); %Basophils 0.4 % (0.0-2.0); %Eosinophils 0.5 % (0.0-6.0); %Lymphocytes 41.5 % (18.0-47.0); %Monocytes 7.8 % (0.0-10.0); %Neutrophils 49.3 % (40.0-75.0); Hematocrit 37.6 % (38.8-50.0); Hemoglobin 13.2 g/dL (13.5-17.5); Mean Corpuscular HGB CONC 35.1 g/dL (32.0-36.0); Mean Corpuscular Hemoglobin 32.2 pg (27.0-33.0); Mean Corpuscular Volume 91.7 fl (81.2-95.1); Mean Platelet Volume 12.5 fl (7.4-10.4); Platelet Count 187 10x3/uL (150-450); RBC Distribution Width 13.4 % (11.5-14.5); White Blood Cell (WBC) Count 10.4 10x3/uL (3.5-10.5)
[2024-03-07 05:12] LABS: Anion Gap 10 mmol/L (10-20); BUN (Urea Nitrogen) 12 mg/dL (8.9-20.6); Calc. Creatinine Clearance 173 mL/min (70-130); Calcium 8.7 mg/dL (7.8-10.44); Carbon Dioxide 29 mmol/L (22-29); Chloride 105 mmol/L (98-107); Estimated GFR 111; Glucose 116 mg/dL (70-105); Potassium 4.2 mmol/L (3.5-5.1); Sodium 140 mmol/L (136-145)
[2024-03-07] MEDS: Dicyclomine 10 MG CAP PO PRN (07:50)
[2024-03-07] MEDS: Morphine 4 MG/ML VIAL SLOW IVP SCH (10:58)
[2024-03-07] MEDS ORDERED: Lidocaine 2% Viscous Solution 20 ML, Aluminum & Magnesium Hydroxide 30 ML, Donnatal Eli... SSW SCH (11:00)
[2024-03-07] MEDS: Lactated Ringer's 1,000 ML IV SCH (11:18)
[2024-03-07] MEDS: Pantoprazole 40 MG VIAL IVP SCH ×2 (11:25→20:47)
[2024-03-07] MEDS: Lidocaine 2% Viscous 10 mL, Alum & Magn 30 mL SSW SCH (11:26)
[2024-03-07] MEDS: Simethicone Chewable 80 MG TAB PO PRN (15:18)
[2024-03-07] MEDS: Nicotine 14 MG PATCH TD SCH (16:19)
[2024-03-07] MEDS: Sucralfate 1 GM TAB PO SCH (16:19)
[2024-03-08 12:00] VITALS: BP 139/83; TEMP 98.2
== END 2024-03-08 14:15 | disposition home or self-care (01) | DRG 392 ==
LOC: CSHERS 16:49 → CSHTELE 22:17 → OBSVTOIN 03-07 11:10
PROVIDERS: ADMIT Student in an Organized Health Care Education/Training Program; ATTEND Family Medicine
DX: K29.70 Gastritis, unspecified, without bleeding (principal); B96.81 Helicobacter pylori [H. pylori] as the cause of diseases classified elsewhere; E86.0 Dehydration; I70.0 Atherosclerosis of aorta; Z79.899 Other long term (current) drug therapy; R73.9 Hyperglycemia, unspecified; K21.9 Gastro-esophageal reflux disease without esophagitis; R03.0 Elevated blood-pressure reading, without diagnosis of hypertension; F17.210 Nicotine dependence, cigarettes, uncomplicated
CPT/HCPCS: 71045; 74177; 76705; 80048; 80053; 80306; 81001; 83036; 83605; 83690; 84443; 84484; 85025; 87338; 93005; 96361; 96365; 96366; 96372; 96375; 96376; C9113; G0378; J1650; J1885; J2001; J2270; J2272; J2405; J2550; J2704; J7120; Q9967; S0028

== ENCOUNTER 2024-08-27 08:17 | Emergency (ER) | payer SELFPAY ==
[2024-08-27] MEDS ORDERED: Morphine 4 MG/ML VIAL ONE (08:38)
[2024-08-27] MEDS ORDERED: Promethazine HCl 12.5 MG in Sodium Chloride 0.9% 50 ML IVPB SCH (08:45)
[2024-08-27 09:21] LABS: #Basophils 0.04 10x3/uL (0.0-0.2); #Eosinophils 0.01 10x3/uL (0.0-0.5); #Monocytes 0.58 10x3/uL (0.0-1.1); #Neutrophils 13.93 10x3/uL (1.5-8.4); %Basophils 0.2 % (0.0-2.0); %Eosinophils 0.1 % (0.0-6.0); %Lymphocytes 12.5 % (18.0-47.0); %Monocytes 3.5 % (0.0-10.0); %Neutrophils 83.1 % (40.0-75.0); Hematocrit 44.4 % (38.8-50.0); Hemoglobin 15.5 g/dL (13.5-17.5); Mean Corpuscular HGB CONC 34.9 g/dL (32.0-36.0); Mean Corpuscular Volume 91.7 fL (81.2-95.1); Mean Platelet Volume 12.4 fL (7.4-10.4); Platelet Count 226 10x3/uL (150-450); RBC Distribution Width 12.8 % (11.5-14.5); Red Blood Cell (RBC) Count 4.84 10x6/uL (4.32-5.72); White Blood Cell (WBC) Count 16.8 10x3/uL (3.5-10.5)
[2024-08-27 09:47] LABS: ALT (SGPT) 25 U/L (8-55); AST (SGOT) 20 U/L (5-34); Albumin 4.4 g/dL (3.5-5.0); Alkaline Phosphatase 109 U/L (40-110); Anion Gap 14 mmol/L (10-20); BUN (Urea Nitrogen) 13 mg/dL (8.9-20.6); Bilirubin, Total 0.6 mg/dL (0.2-1.2); Calc. Creatinine Clearance 0 mL/min (70-130); Calcium 9.5 mg/dL (7.8-10.44); Carbon Dioxide 23 mmol/L (22-29); Chloride 105 mmol/L (98-107); Estimated GFR 115; Globulin 3.3 g/dL (2.4-3.5); Glucose 151 mg/dL (70-105); Lipase 22 U/L (8-78); Potassium 4.1 mmol/L (3.5-5.1); Protein, Total 7.7 g/dL (6.0-8.3); Sodium 138 mmol/L (136-145)
[2024-08-27 10:47] LABS: Bilirubin Neg (Negative); Blood, Urine 25 (Negative); Clarity Clear (Clear); Glucose, Urine (Dipstick) Normal (Negative); Ketone, Urine Negative (Negative); Leukocyte 25 (Negative); Nitrite Negative (Negative); Protein, Urine (Dipstick) 30 mg/dl (Neg-Trace); Specific Gravity, Urine 1.015 (1.005-1.030); Urobilinogen Normal mg/dL (Less than 2); pH, Urine 6.5 (5.0-9.0)
[2024-08-27 10:58] LABS: Bacteria/HPF Rare-Few HPF (None Seen); CAUTI Indications for Culture Pelvic or flank pain; Mucous/LPF 2+ LPF (<2+); RBC/HPF 0-3 HPF (0-3); Squamous Epithelial 0-3 HPF (0-3); WBC/HPF 0-3 HPF (0-3)
[2024-08-27 10:59] LABS: Urine Culture Reflex No No
[2024-08-27] MEDS ORDERED: Ketorolac Tromethamine 30 MG (1 mL) VIAL ONE (11:07)
[2024-08-27] MEDS ORDERED: Iopamidol 300 61% 100 ML VIAL FS ONE (12:32)
== END 2024-08-27 11:15 | disposition home or self-care (01) ==
LOC: CSHERS 08:17
DX: R10.11 Right upper quadrant pain (principal); R11.0 Nausea; K21.9 Gastro-esophageal reflux disease without esophagitis; F17.210 Nicotine dependence, cigarettes, uncomplicated; Z79.899 Other long term (current) drug therapy
CPT/HCPCS: 74177; 80053; 81001; 83690; 85025; 96374; 96375; J1885; J2272; J2550; Q9967

== ENCOUNTER 2024-08-27 15:32 | Emergency (ER) | payer SELFPAY ==
[2024-08-27] MEDS ORDERED: Droperidol 5 MG/2 ML VIAL ONE (15:57)
[2024-08-27] MEDS ORDERED: Promethazine HCl 12.5 MG, Admixture Fee 1 EACH in Sodium Chloride 0.9% 100 ML IVPB SCH (16:15)
[2024-08-27] MEDS ORDERED: Promethazine HCl 12.5 MG, Admixture Fee 1 EACH in Sodium Chloride 0.9% 50 ML IVPB SCH (16:15)
== END 2024-08-27 19:05 | disposition home or self-care (01) ==
LOC: CSHERS 15:32
DX: R10.32 Left lower quadrant pain (principal); R11.2 Nausea with vomiting, unspecified; F17.210 Nicotine dependence, cigarettes, uncomplicated; Z55.0 Illiteracy and low-level literacy
CPT/HCPCS: 96374; 96375; J1790; J2550

== ENCOUNTER 2025-09-08 19:26 | Emergency (ER) | payer SELFPAY ==
[2025-09-08] MEDS ORDERED: Ketorolac Tromethamine 30 MG (1 mL) VIAL ONE (20:00)
[2025-09-08] MEDS ORDERED: Famotidine/PF 20 mg/2ml Vial ONE (20:00)
[2025-09-08] MEDS ORDERED: Pantoprazole 40 MG VIAL ONE (20:00)
[2025-09-08 20:37] LABS: ALT (SGPT) 33 U/L (Less than 45); AST (SGOT) 26 U/L (11-34); Albumin 4.5 g/dL (3.1-4.5); Alkaline Phosphatase 153 U/L (40-110); Anion Gap 17 mmol/L (10-20); BUN (Urea Nitrogen) 15 mg/dL (8.9-20.6); Bilirubin, Total 0.3 mg/dL (0.3-1.2); Calc. Creatinine Clearance 0 mL/min (70-130); Calcium 9.6 mg/dL (7.8-10.44); Carbon Dioxide 20 mmol/L (22-29); Chloride 102 mmol/L (98-107); Globulin 3.2 g/dL (2.4-3.5); Glucose 276 mg/dL (70-105); Lipase 40 U/L (8-78); Magnesium 1.9 mg/dL (1.6-2.6); Potassium 3.7 mmol/L (3.5-5.1); Sodium 135 mmol/L (136-145)
[2025-09-08 20:40] LABS: #Basophils 0.06 10x3/uL (0.0-0.2); #Eosinophils 0.12 10x3/uL (0.0-0.5); #Monocytes 0.92 10x3/uL (0.0-1.1); #Neutrophils 12.92 10x3/uL (1.5-8.4); %Basophils 0.3 % (0.0-2.0); %Eosinophils 0.7 % (0.0-6.0); %Lymphocytes 20.2 % (18.0-47.0); %Monocytes 5.2 % (0.0-10.0); %Neutrophils 73.2 % (40.0-75.0); Hematocrit 41.5 % (38.8-50.0); Hemoglobin 15.4 g/dL (13.5-17.5); Mean Corpuscular Hemoglobin 32.7 pg (27.0-33.0); Mean Corpuscular Volume 88.1 fL (81.2-95.1); Platelet Count 209 10x3/uL (150-450); Red Blood Cell (RBC) Count 4.71 10x6/uL (4.32-5.72); White Blood Cell (WBC) Count 17.66 10x3/uL (3.5-10.5)
[2025-09-08 20:44] LABS: Troponin I Less than 0.010 ng/mL (< 0.028)
[2025-09-08 21:24] LABS: Glucose, Urine (Dipstick) >=1000 mg/dL (Negative); Leukocyte Negative (Negative); Protein, Urine (Dipstick) 30 mg/dl (Neg-Trace); Specific Gravity, Urine 1.025 (1.005-1.030)
[2025-09-08 21:39] LABS: CAUTI Indications for Culture Pelvic or flank pain; WBC/HPF 0-3 HPF (0-3)
[2025-09-08 21:40] LABS: Mucous/LPF 2+ LPF (<2+)
[2025-09-08 21:41] LABS: Bacteria/HPF 1+ HPF (None Seen)
[2025-09-08 21:42] LABS: Urine Culture Reflex No No
[2025-09-08 22:41] LABS: Troponin I Less than 0.010 ng/mL (< 0.028)
[2025-09-08] MEDS ORDERED: Lantus 1000 UNITS/10 ML VIAL SC SCH (23:59)
[2025-09-11 07:22] LABS: Actual Bicarbonate (HCO3v) 21.2 mEq/L (22-28); Analyzer IN Cardio CS ER; Base Excess -3.5 mEq/L (-2 - +2); Calcium, Ionized (venous) 1.10 mmol/L (1.16-1.32); Chloride (VBG) 103 mmol/L (98-106); Critical Notified By: CP.PH; Hematocrit-VBG 45 % (42.0-52.0); Hemoglobin (Hb) 15.2 g/dL (13.2-17.3); Potassium (VBG) 4.07 mmol/L (3.70-5.30); Puncture Site Other Site; RapidComm Collect By LAB.CMJ; Sodium 137 mmol/L (133-146)
== END 2025-09-08 23:52 | disposition home or self-care (01) ==
LOC: CSHERS 19:26
DX: E11.65 Type 2 diabetes mellitus with hyperglycemia (principal); R10.13 Epigastric pain; D72.829 Elevated white blood cell count, unspecified; R07.9 Chest pain, unspecified; R31.29 Other microscopic hematuria; E11.9 Type 2 diabetes mellitus without complications; F17.210 Nicotine dependence, cigarettes, uncomplicated
CPT/HCPCS: 36415; 36416; 71045; 80053; 81001; 82010; 82805; 83690; 83735; 83880; 84484; 85025; 85379; 93005; 94760; 96374; 96375; J1308; J1815; J1885; J2470